=== PATIENT | female | born 2000 | race Caucasian/White ===

== ENCOUNTER 2025-02-24 15:57 | Emergency (ER) | payer BC ==
[2025-02-24] MEDS: Bacitracin Oint 1 GM U/D Packet TOP ONE (17:02)
== END 2025-02-24 17:03 | disposition home or self-care (01) ==
LOC: DL.ED 15:57
DX: S60.221A Contusion of right hand, initial encounter (principal); Z79.899 Other long term (current) drug therapy; Z91.048 Other nonmedicinal substance allergy status; W23.1XXA Caught, crushed, jammed, or pinched between stationary objects, initial encounter; Y93.89 Activity, other specified
CPT/HCPCS: 73130; 99283; A9270